=== PATIENT | male | born 2005 | race African-American/Black ===

== ENCOUNTER 2023-10-28 14:27 | Inpatient (IN) ==
[2023-10-28] MEDS: Lactated Ringers 1000 ml BAG 1,000 ML IV ONE (14:53)
[2023-10-28 15:12] LABS: ABS Basophils 0.1 10^3/uL (0.0-0.1); ABS Eosinophils 0.1 10^3/uL (0.0-0.5); ABS Lymphocytes 2.6 10^3/uL (1.0-4.8); ABS Monocytes 1.1 10^3/uL (0.0-1.1); ABS Neutrophils 7.2 10^3/uL (1.5-7.6); Eosinophil % 1.2 %; Hematocrit 47.2 % (38-53); Hemoglobin 15.8 g/dL (13.2-16.3); Lymphocyte % 23.4 %; Mean Corpuscular Hgb Conc 33.5 g/dL (31-36); Mean Corpuscular Volume 89.5 fL (80-97); Mean Platelet Volume 9.4 fL (7.5-11.2); Platelet Count 306 10^3/uL (150-450); Red Blood Count 5.27 10^6/uL (4.06-5.63); Red Cell Distribution Width 14.4 % (12-17); White Blood Count 11.1 10^3/uL (3.6-10.2)
[2023-10-28 15:54] LABS: Urine Appearance Clear; Urine Bacteria Absent /HPF (Absent); Urine Bilirubin Negative (Negative); Urine Blood 1+ (Negative); Urine Color Light-Yellow; Urine Glucose 4+ (>=1000 mg/dL) (Negative); Urine Granular Casts Present /LPF (Absent); Urine Ketones 4+ (Negative); Urine Nitrite Negative (Negative); Urine Protein 2+ (>=100 mg/dL) (Negative); Urine Red Blood Cell Trace(0-2/hpf) /HPF (0-Trace); Urine Specific Gravity 1.033 (1.002-1.030); Urine Squamous Epithelial Cell Present /HPF (Absent); Urine Urobilinogen Negative (Negative); Urine White Blood Cell Absent /HPF (0-Trace); Urine pH 5.5 (5.0-8.0)
[2023-10-28 15:55] LABS: Albumin 4.7 g/dL (3.2-5.2); Albumin/Globulin Ratio 1.5 (1-3); C Reactive Protein 9.12 mg/L (<8.01); Calcium 9.2 mg/dL (8.6-10.3); Creatinine, Serum 0.91 mg/dL (0.67-1.17); Globulin 3.2 g/dL (2-4); Magnesium 1.9 mg/dL (1.9-2.7); Potassium 4.1 mmol/L (3.5-5.0); Total Bilirubin 0.5 mg/dL (0.2-1.0); Total Protein 7.9 g/dL (6.4-8.9); eGFR CKD-EPI 123.7 (>60)
[2023-10-28] MEDS ORDERED: Dextrose 50% Syringe 50 ml 25 GM/50 ML SYRINGE IV PUSH PRN (15:59)
[2023-10-28 16:12] LABS: TSH Ultra Thyroid Stim Horm 1.38 mcIU/mL (0.34-5.60)
[2023-10-28 16:58] LABS: Phosphorus 2.9 mg/dL (2.5-5.0)
[2023-10-28] MEDS: NORMOSOL-R pH 7.4 1000 mL BAG 1,000 ML IV SCH (17:42)
[2023-10-28] MEDS: Insulin Infusion 100unit/100mL 100 UNIT/100 ML BAG IV SCH (17:43)
[2023-10-28] MEDS: NORMOSOL-R pH 7.4 1000 mL BAG 1,000 ML IV ONE (17:43)
[2023-10-28] MEDS ORDERED: D5NS 0.9% 1000 ml BAG 1,000 ML IV SCH (18:00)
[2023-10-28 18:48] LABS: Blood Urea Nitrogen 6 mg/dL (6-24); CO2 Carbon Dioxide < 7 mmol/L (22-32); Calcium 7.8 mg/dL (8.6-10.3); Chloride 106 mmol/L (101-111); Glucose 235 mg/dL (70-100); Potassium 3.4 mmol/L (3.5-5.0); Sodium 134 mmol/L (135-145); eGFR CKD-EPI 141.7 (>60)
[2023-10-28] MEDS: D5W NS 0.9% 20Meq KCL 1000 ml 1,000 ML IV SCH ×3 (18:54→22:41)
[2023-10-28] MEDS: Magnesium Sulfate 2 gm BAG 2 GM/50 ML BAG IVPB ONE (19:52)
[2023-10-28] MEDS: Potassium EFFERVES 25 meq TAB PO ONE (19:57)
[2023-10-28 21:36] LABS: Calcium 7.8 mg/dL (8.6-10.3); Creatinine, Serum 0.74 mg/dL (0.67-1.17); Potassium 3.3 mmol/L (3.5-5.0)
[2023-10-29 01:31] LABS: Calcium 7.6 mg/dL (8.6-10.3); Creatinine, Serum 0.71 mg/dL (0.67-1.17); Potassium 3.4 mmol/L (3.5-5.0); eGFR CKD-EPI 134.7 (>60)
[2023-10-29] MEDS: Potassium Chlor 20 meq TAB.ER PO ONE (01:45)
[2023-10-29 04:18] LABS: Venous Bicarbonate HCO3 12.6 mmol/L (24-28)
[2023-10-29 04:53] LABS: Calcium 7.8 mg/dL (8.6-10.3); Creatinine, Serum 0.64 mg/dL (0.67-1.17); Potassium 3.2 mmol/L (3.5-5.0)
[2023-10-29] MEDS ORDERED: Dextrose 50% Syringe 50 ml 25 GM/50 ML SYRINGE IV PUSH PRN ×2 (05:02→09:03)
[2023-10-29] MEDS: KCL 20 MEQ/100 ML IVPREMIX 20 MEQ/100 ML BAG IV SCH (05:15)
[2023-10-29] MEDS: Insulin GLARGINE 100 un/ml 10 ml VIAL SUBCUT ONE (05:17)
[2023-10-29] MEDS: Sodium Bicarbonate 8.4% SYR 50 ml SYRINGE IV ONE (05:22)
[2023-10-29 11:36] LABS: Calcium 8.5 mg/dL (8.6-10.3); Creatinine, Serum 0.72 mg/dL (0.67-1.17); Potassium 3.5 mmol/L (3.5-5.0); eGFR CKD-EPI 134.1 (>60)
[2023-10-29 15:08] LABS: Calcium 8.3 mg/dL (8.6-10.3); Creatinine, Serum 0.64 mg/dL (0.67-1.17); Potassium 3.6 mmol/L (3.5-5.0)
[2023-10-29] MEDS: Insulin GLARGINE 100 un/ml 10 ml VIAL SUBCUT SCH (22:00)
[2023-10-29 22:17] LABS: Calcium 8.4 mg/dL (8.6-10.3); Creatinine, Serum 0.81 mg/dL (0.67-1.17); Potassium 3.7 mmol/L (3.5-5.0); eGFR CKD-EPI 129.4 (>60)
[2023-10-30 05:40] LABS: Calcium 8.3 mg/dL (8.6-10.3); Creatinine, Serum 0.61 mg/dL (0.67-1.17); Magnesium 1.8 mg/dL (1.9-2.7)
[2023-10-30] MEDS: Potassium Chlor 20 meq TAB.ER PO ONE (05:58)
[2023-10-30] MEDS: Magnesium Sulfate 2 gm BAG 2 GM/50 ML BAG IVPB ONE (05:59)
[2023-10-30] MEDS ORDERED: Dextrose 50% Syringe 50 ml 25 GM/50 ML SYRINGE IV PUSH PRN (07:44)
[2023-10-30] MEDS: Insulin GLARGINE 100 un/ml 10 ml VIAL SUBCUT SCH ×2 (08:22→20:34)
[2023-10-30 12:57] LABS: Calcium 8.3 mg/dL (8.6-10.3); Creatinine, Serum 0.56 mg/dL (0.67-1.17); Potassium 3.1 mmol/L (3.5-5.0); eGFR CKD-EPI 144.7 (>60)
[2023-10-30] MEDS: KCL 10 MEQ/50 ML IVPREMIX 10 MEQ/50 ML BAG IV SCH (16:16)
[2023-10-30] MEDS: Potassium Chloride LIQUID 20 MEQ/15 ML LIQUID PO ONE (16:16)
[2023-10-30] MEDS ORDERED: Potassium Chloride LIQUID 20 MEQ/15 ML LIQUID PO SCH (21:00)
[2023-10-31 06:02] LABS: ABS Eosinophils 0.2 10^3/uL (0.0-0.5); ABS Lymphocytes 2.5 10^3/uL (1.0-4.8); ABS Monocytes 0.9 10^3/uL (0.0-1.1); ABS Neutrophils 3.2 10^3/uL (1.5-7.6); Hematocrit 40.5 % (38-53); Mean Corpuscular Hemoglobin 30.5 pg (27-33); Mean Corpuscular Hgb Conc 34.6 g/dL (31-36); Mean Corpuscular Volume 88.1 fL (80-97); Mean Platelet Volume 9.3 fL (7.5-11.2); Platelet Count 248 10^3/uL (150-450); Red Blood Count 4.59 10^6/uL (4.06-5.63); Red Cell Distribution Width 14.6 % (12-17); White Blood Count 6.8 10^3/uL (3.6-10.2)
[2023-10-31 06:21] LABS: Calcium 8.8 mg/dL (8.6-10.3); Creatinine, Serum 0.53 mg/dL (0.67-1.17); Potassium 3.8 mmol/L (3.5-5.0); eGFR CKD-EPI 147.1 (>60)
[2023-10-31 13:48] VITALS: BP 129/84
[2023-11-06 11:36] LABS: Anti GAD 65 Antibody 0.44 nmol/L (<= 0.02)
== END 2023-10-31 16:08 | disposition home or self-care (01) | DRG 420 ==
LOC: ED 14:27 → ICU 16:21 → SUATTDRO 16:21 → ICU 17:09 → MED 10-29 21:09
PROVIDERS: ADMIT Surgery Surgical Critical Care; ATTEND Student in an Organized Health Care Education/Training Program